=== PATIENT | female | born 1955 | race Caucasian/White ===

== ENCOUNTER 2021-08-30 09:06 | Day surgery (SDC) | payer MEDICARE, BC ==
[~2021-08-30 09:06] MED LIST: Lactated Ringers 1,000 ML IV SCH; Sodium Chloride 0.9% 10 ML SDV IV PRN; Sodium Chloride 0.9% 10 ML Syringe FLUSH PRN; Sodium Chloride 0.9% 2.5 ML Syringe FLUSH PRN
--- NOTE | 2021-08-30 10:05 | PCM.PREANE ---
Preanesthetic Assessment - Anesthesia/Transfusion/Family Hx Anesthesia History: Prior Anesthesia Without Reaction Transfusion History: No Prior Transfusion(s) - Review of Systems General: No Symptoms Pulmonary: No Symptoms Cardiovascular: No Symptoms Gastrointestinal: No Symptoms Neurological: No Symptoms Other: Reports: None - Physical Assessment NPO Status Date: 08/30/21 NPO Status Time: 00:00 Vital Signs: Last Vital Signs Temp 96.8 F L 08/30/21 09:12 Pulse 85 08/30/21 09:12 Resp 16 08/30/21 09:12 BP 134/95 H 08/30/21 09:12 Pulse Ox 93 L 08/30/21 09:12 Height: 5 ft 6 in Weight: 157 lb ASA Class: 2 Mental Status: Alert & Oriented x3 Airway Class: Mallampati = 2 Dentition: Reports: Normal Dentition Thyro-Mental Finger Breadths: 3 Mouth Opening Finger Breadths: 3 ROM/Head Extension: Full Lungs: Clear to Auscultation, Normal Respiratory Effort Cardiovascular: Regular Rate, Regular Rhythm - Allergies Allergies/Adverse Reactions: Allergies Allergy/AdvReac Type Severity Reaction Status Date / Time No Known Allergies Allergy Verified 08/24/21 09:52 - Acknowledgements Anesthesia Type Planned: General Anesthesia Pt an Appropriate Candidate for the Planned Anesthesia: Yes Alternatives and Risks of Anesthesia Discussed w Pt/Guardian: Yes Pt/Guardian Understands and Agrees with Anesthesia Plan: Yes PreAnesthesia Questionnaire HEENT History: Reports: Other (See Below) Other HEENT History: wears glasses Cardiovascular History: Reports: High Cholesterol, Hypertension Respiratory History: Reports: None Gastrointestinal History: Reports: Colon Polyp, Diverticulosis, Hemorrhoids Genitourinary History: Reports: None Musculoskeletal History: Reports: Other (See Below) Other Musculoskeletal History: scoliosis Neurological History: Reports: None Psychiatric History: Reports: None Endocrine/Metabolic History: Reports: None Hematologic History: Reports: None Immunologic History: Reports: None Oncologic (Cancer) History: Reports: None Dermatologic History: Reports: None - Past Surgical History Head Surgeries/Procedures: Reports: None HEENT Surgical History: Reports: Adenoidectomy Cardiovascular Surgical History: Reports: None Respiratory Surgical History: Reports: None GI Surgical History: Reports: Colonoscopy Female Surgical History: Reports: Other (See Below) Other Female Surgeries/Procedures: laparoscopy for "blocked fallopian tube" Endocrine Surgical History: Reports: None Neurological Surgical History: Reports: None Musculoskeletal Surgical History: Reports: None Oncologic Surgical History: Reports: None Dermatological Surgical History: Reports: None - SUBSTANCE USE Tobacco Use Status *Q: Former Tobacco User Tobacco Use Within Last Twelve Months: No Recreational Drug Use History: No - HOME MEDS Home Medications: Home Meds Ca/D3/Mag Ox/Zinc/Supervisor Of Officials/Jonel/Bor [Calcium 600-D3 Plus Caplet] 1 tab PO BID 08/24/21 [History] Cyclobenzaprine HCl 10 mg PO TID PRN 08/24/21 [History] Fish Oil/Acton-3 Fatty Acids [Fish Oil 1,000 MG] 350 mg PO DAILY 08/24/21 [History] Glucosamine HCl [Glucosamine] 1 tab PO DAILY 08/24/21 [History] Multivitamin 1 tab PO DAILY 08/24/21 [History] Ubidecarenone [Coq-10] 100 mg PO DAILY 08/24/21 [History] atorvaSTATin [Lipitor] 10 mg PO DAILY 08/24/21 [History] hydroCHLOROthiazide [Hydrochlorothiazide] 25 mg PO DAILY 08/24/21 [History] - CURRENT (IN HOUSE) MEDS Current Meds: Current Medications Lactated Ringer's (Ringers, Lactated) 1,000 mls @ 125 mls/hr IV ASDIRECTED ROBBIE Last Admin: 08/30/21 09:22 Dose: 125 mls/hr Documented by: Sodium Chloride (Sodium Chloride 0.9% 10 Ml Syringe) 10 ml FLUSH ASDIRECTED PRN PRN Reason: Keep Vein Open Sodium Chloride (Sodium Chloride 0.9% 2.5 Ml Syringe) 2.5 ml FLUSH ASDIRECTED PRN PRN Reason: Keep Vein Open Sodium Chloride (Sodium Chloride 0.9% 10 Ml Syringe) 10 ml FLUSH ASDIRECTED PRN PRN Reason: Keep Vein Open Sodium Chloride (Sodium Chloride 0.9% 2.5 Ml Syringe) 2.5 ml FLUSH ASDIRECTED PRN PRN Reason: Keep Vein Open Sodium Chloride (Sodium Chloride 0.9% 10 Ml Sdv) 10 ml IV ASDIRECTED PRN PRN Reason: IV Use
[2021-08-30] MEDS ORDERED: fentaNYL 100 MCG/2 ML SDV ONE (10:27)
[2021-08-30] MEDS ORDERED: Propofol 200 MG/20 ML SDV ONE (10:27)
--- NOTE | 2021-08-30 11:35 | PCM.POSTAN ---
POST ANESTHESIA ASSESSMENT - MENTAL STATUS Mental Status: Alert, Oriented - VITAL SIGNS Vital Signs: Last Vital Signs Temp 97.5 F 08/30/21 11:25 Pulse 64 08/30/21 11:25 Resp 15 08/30/21 11:25 BP 145/77 H 08/30/21 11:25 Pulse Ox 97 08/30/21 11:25 - RESPIRATORY Respiratory Status: Respiratory Rate WNL, Airway Patent, O2 Saturation Stable - CARDIOVASCULAR CV Status: Pulse Rate WNL, Blood Pressure Stable - GASTROINTESTINAL GI Status: No Symptoms - POST OP HYDRATION Hydration Status: Adequate & Stable
--- NOTE | 2021-08-30 11:35 | PCM48HPAN ---
Post Anesthesia Note - EVALUATION WITHIN 48HRS OF ANESTHETIC Vital Signs in Normal Range: Yes Patient Participated in Evaluation: Yes Respiratory Function Stable: Yes Airway Patent: Yes Cardiovascular Function Stable: Yes Hydration Status Stable: Yes Pain Control Satisfactory: Yes Nausea and Vomiting Control Satisfactory: Yes Mental Status Recovered: Yes Vital Signs: Last Vital Signs Temp 97.5 F 08/30/21 11:25 Pulse 64 08/30/21 11:25 Resp 15 08/30/21 11:25 BP 145/77 H 08/30/21 11:25 Pulse Ox 97 08/30/21 11:25
--- NOTE | 2021-08-30 11:49 | PCM.OPNOTE ---
- General Post-Op/Procedure Note Date of Surgery/Procedure: 08/30/21 Operative Procedure(s): Screening colonoscopy Findings: Diverticulosis throughout colon Pre Op Diagnosis: Screening colonoscopy, history of diverticulosis Post-Op Diagnosis: Diverticulosis Anesthesia Technique: RAMIRO Primary Surgeon: Bri Osborn Condition: Stable Free Text/Narrative:: Intake & Output 08/29/21 08/30/21 08/30/21 22:59 06:59 14:59 Intake Total 725 Balance 725
--- NOTE | 2021-08-30 13:59 | OR ---
SURGEON: BRI OSBORN MD DATE OF PROCEDURE: 08/30/2021 PREOPERATIVE DIAGNOSES: Screening colonoscopy, history of diverticulosis. POSTOPERATIVE DIAGNOSIS: Diverticulosis. PROCEDURE PERFORMED: Screening colonoscopy. PRIMARY SURGEON: Bri Osborn MD ANESTHESIA: MAC. INSTRUMENT USED: Olympus colonoscope. EXTENT OF THE EXAM: To the cecum. PREPARATION: Good. LIMITATIONS: None. INDICATIONS FOR EXAMINATION: The patient is a 66-year-old female who presents for a 10-year followup colonoscopy. During her last colonoscopy, she was found to have diverticulosis. The patient and I discussed the need for repeat exam. I explained the procedure, expected perioperative course, and the risks. She verbalized understanding and wishes to proceed. PROCEDURE IN DETAIL: The patient was brought in to the endoscopy suite and placed in a left lateral decubitus position. A time-out was completed verifying the patient's name, age, date of , allergies, and procedure to be performed. Monitored anesthesia care was induced and continuous oxygen was provided via nasal cannula throughout the procedure. After adequate sedation was achieved, a digital rectal exam was performed. This exam was within normal limits. A well-lubricated colonoscope was inserted into the rectum and advanced under direct visualization to the level of the cecum. The cecum was identified by both visual and anatomic landmarks. A photograph was taken of the cecal cap as well as with the scope retroflexed within the cecum. The scope was then fully withdrawn while examining the color, texture, anatomy, and integrity of the mucosa from the cecum to the anal canal. The patient was found to have diverticulosis throughout the colon. There was no evidence of any colon polyps. The scope was then brought into the rectum and retroflexed to allow visualization of the anal canal opening. This appeared normal and a photograph was taken. The scope was straightened out and fully withdrawn. The cecum to anus time was 9 minutes. The patient tolerated the procedure well and was transferred to the PACU in stable condition. ENDOSCOPIC DIAGNOSIS: Diverticulosis. RECOMMENDATION: Follow up in clinic in 10 years for a repeat colonoscopy. LUZ HINES /[id number]
== END 2021-08-30 11:50 | disposition home or self-care (01) ==
LOC: MW.SDS 09:06
PROVIDERS: ATTEND Surgery
DX: Z12.11 Encounter for screening for malignant neoplasm of colon (principal); K57.30 Diverticulosis of large intestine without perforation or abscess without bleeding; I10 Essential (primary) hypertension; E78.00 Pure hypercholesterolemia, unspecified; Z86.010 Personal history of colon polyps; Z80.0 Family history of malignant neoplasm of digestive organs; Z79.899 Other long term (current) drug therapy; Z98.890 Other specified postprocedural states; Z87.891 Personal history of nicotine dependence
CPT/HCPCS: G0105; J2704; J3010; J7120; 00812